=== PATIENT | female | born 1980 | race African-American/Black ===

== ENCOUNTER 2021-04-26 20:32 | Emergency (ER) | payer OTHER ==
[~2021-04-26] VITALS: Ht 172.7 cm; Wt 99.8 kg
[2021-04-26] MEDS ORDERED: NORVASC 2.5 MG2.5 M1 PO (20:39)
[2021-04-26] MEDS ORDERED: HYDROCHLOROTHIA25 M1 PO (20:39)
[2021-04-26] MEDS ORDERED: APAP W/CODEINE1 TA2 PO ×2 (22:02→22:05)
[2021-04-26] MEDS ORDERED: FLEXERIL PO (22:06)
[2021-04-26 22:23] VITALS: BP 142/78
== END 2021-04-26 22:23 | disposition home or self-care (01) ==
LOC: M.ERS 20:32
DX: M25.561 Pain in right knee (principal); R07.81 Pleurodynia; M79.642 Pain in left hand; Z90.49 Acquired absence of other specified parts of digestive tract; Z90.710 Acquired absence of both cervix and uterus